=== PATIENT | female | born 1980 | race Caucasian/White ===

== ENCOUNTER 2019-03-20 00:59 | Emergency (ER) | payer OTHER ==
[~2019-03-20] VITALS: Ht 154.9 cm; Wt 83.0 kg
[2019-03-20 01:38] LABS: ABSOLUTE NEUTROPHILS 2.8 thou/uL (1.4-8.2); BASOPHILS 1.4 % (0.0-2.0); EOSINOPHILS 2.7 % (0.0-3.0); HEMATOCRIT 36.1 % (37.0-47.0); HEMOGLOBIN 12.2 gm/dL (12.0-15.0); LYMPHOCYTES 42.1 % (24.0-44.0); MCH 30.9 pg (26.0-34.0); MCHC 33.8 g/dL (28.0-37.0); MCV 91.4 fL (80.0-100.0); MONOCYTES 10.5 % (1.0-8.0); PLATELET COUNT 233 thou/uL (150-400); POLYS 43.3 % (36.0-66.0); RBC 3.95 mil/uL (4.20-5.00); RDW 12.9 % (10.5-14.5); WBC 6.4 thou/uL (4.0-11.0)
[2019-03-20 01:46] LABS: ANION GAP 10 mmol/L (7-16); BUN 16 mg/dL (7-18); CALCIUM 8.5 mg/dL (8.5-10.1); CHLORIDE 102 mmol/L (98-107); CO2 25 mmol/L (21-32); CREATININE 0.7 mg/dL (0.6-1.0); GLUCOSE 98 mg/dL (74-106); POTASSIUM 4.3 mmol/L (3.5-5.1); SODIUM 137 mmol/L (136-145)
[2019-03-20 01:55] LABS: TROPONIN-I <0.06 ng/mL (<0.06)
[2019-03-20 03:16] VITALS: BP 105/73
--- NOTE | 2019-03-20 15:01 | EKG ---
[address] [address] ELECTROCARDIOGRAM REPORT Name: JUSTICE ELAINE [id number] Admission: 03/20/19 Attend Phys: Discharge: 03/20/19 Date of : 82 Report #: [id number] THIS REPORT FOR: //name// [facility] ED Test Date: 2019-03-20 Test Time: 01:06:24 Pat Name: JUSTICE ELAINE Department: Room: Gender: F [employer]: [place] : 1980 Requested By: Milan Calvin Order Number: [id number] MD: Jayme Hernandez Measurements Intervals [place] Rate: 68 P: 16 [place]: 142 QRS: 46 QRSD: 84 T: 42 QT: 374 QTc: 398 Interpretive Statements Sinus rhythm No previous ECG available for comparison Electronically Signed On 03-20-2019 15:00:54 NEONATAL NURSE by Jayme Hernandez [email or web address] <ELECTRONICALLY SIGNED> By: Jayme Hernandez MD 03/20/19 1500 [id number] Jayme Hernandez MD /EPI
== END 2019-03-20 03:18 | disposition home or self-care (01) ==
LOC: ER 00:59
PROVIDERS: Emergency Medicine
DX: R07.89 Other chest pain (principal)

== ENCOUNTER 2019-10-15 20:49 | Emergency (ER) | payer OTHER ==
[~2019-10-15] VITALS: Ht 154.9 cm; Wt 82.6 kg
[2019-10-15 21:37] LABS: ABSOLUTE NEUTROPHILS 2.1 thou/uL (1.4-8.2); BASOPHILS 0.6 % (0.0-2.0); EOSINOPHILS 0.3 % (0.0-3.0); HEMATOCRIT 40.5 % (37.0-47.0); LYMPHOCYTES 33.6 % (24.0-44.0); MCH 31.8 pg (26.0-34.0); MCHC 34.6 g/dL (28.0-37.0); MCV 91.9 fL (80.0-100.0); PLATELET COUNT 168 thou/uL (150-400); POLYS 59.5 % (36.0-66.0); WBC 3.5 thou/uL (4.0-11.0)
[2019-10-15 21:42] LABS: URINE BILIRUBIN NEGATIVE (Negative); URINE BLOOD TRACE (Negative); URINE CLARITY CLEAR; URINE COLOR YELLOW; URINE GLUCOSE-RANDOM* NEGATIVE (Negative); URINE KETONES TRACE (Negative); URINE LEUKOCYTES-REFLEX NEGATIVE (Negative); URINE NITRITE-REFLEX NEGATIVE (Negative); URINE PROTEIN (DIPSTICK) NEGATIVE (Negative); URINE SPECIFIC GRAVITY 1.025 (1.005-1.035)
[2019-10-15 21:45] LABS: CREATININE 0.9 mg/dL (0.6-1.0); POTASSIUM 3.5 mmol/L (3.5-5.1)
[2019-10-15 21:51] LABS: ALBUMIN 3.7 g/dL (3.4-5.0); TOTAL BILIRUBIN 0.3 mg/dL (0.2-1.0)
[2019-10-15 22:09] VITALS: BP 111/70
--- NOTE | 2019-10-17 16:01 | EKG ---
[facility] [place] [address] ELECTROCARDIOGRAM REPORT Name: JUSTICE ELAINE Room #: 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
== END 2019-10-15 22:10 | disposition home or self-care (01) ==
LOC: ER 20:49
PROVIDERS: Emergency Medicine
DX: R50.9 Fever, unspecified (principal); Z20.828 Contact with and (suspected) exposure to other viral communicable diseases; R07.0 Pain in throat; R07.89 Other chest pain; R00.0 Tachycardia, unspecified

== ENCOUNTER 2019-10-19 21:05 | Inpatient (IN) | payer OTHER ==
[~2019-10-19] VITALS: Ht 154.9 cm; Wt 77.6 kg
[2019-10-19 21:14] VITALS: BP 89/63
[2019-10-19 21:44] LABS: BASOPHILS 0.3 % (0.0-2.0); EOSINOPHILS 0.5 % (0.0-3.0); HEMATOCRIT 40.1 % (37.0-47.0); LYMPHOCYTES 42.7 % (24.0-44.0); MCH 31.6 pg (26.0-34.0); MCHC 34.9 g/dL (28.0-37.0); MCV 90.4 fL (80.0-100.0); MONOCYTES 8.6 % (1.0-8.0); PLATELET COUNT 216 thou/uL (150-400); POLYS 47.9 % (36.0-66.0); RBC 4.43 mil/uL (4.20-5.00); WBC 4.2 thou/uL (4.0-11.0)
[2019-10-19 21:53] LABS: ANION GAP 8 mmol/L (7-16); BUN 5 mg/dL (7-18); CALCIUM 8.3 mg/dL (8.5-10.1); CHLORIDE 103 mmol/L (98-107); CO2 29 mmol/L (21-32); CREATININE 0.7 mg/dL (0.6-1.0); GLUCOSE 95 mg/dL (74-106); POTASSIUM 3.6 mmol/L (3.5-5.1); SODIUM 140 mmol/L (136-145)
[2019-10-19 22:03] LABS: ALBUMIN 3.3 g/dL (3.4-5.0); SGOT 29 U/L (15-37); SGPT 22 U/L (30-65); TOTAL BILIRUBIN 0.3 mg/dL (0.2-1.0); TROPONIN-I <0.06 ng/mL (<0.06)
[2019-10-20 02:10] VITALS: BP 90/63
[2019-10-20 02:56] VITALS: BP 85/60
[2019-10-20 04:14] VITALS: BP 94/67
[2019-10-20] MEDS ORDERED: TYLENOL EXTRA500 MG PO (04:54)
--- NOTE | 2019-10-20 07:45 | NUR ---
Arrived from ER around 0410. Tolerating room air well. She does get short of breath with exertion. Afebrile. Left a message for Jack Deal consult. Ambulated to bathroom with steady gait.
[2019-10-20 08:33] VITALS: BP 90/61
--- NOTE | 2019-10-20 08:49 | EKG ---
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: [place] : 1980 Requested By: Bernardo Chand Order Number: [id number] MD: Soy Montoya Measurements Intervals [place] Rate: 87 P: 2 [place]: 153 QRS: 14 QRSD: 82 T: 5 QT: 345 QTc: 415 Interpretive Statements Sinus rhythm Borderline T wave abnormalities Compared to ECG 10/15/2019 21:27:52 T-wave abnormality now present Electronically Signed On 10-20-2019 8:49:27 CDT by Soy Montoya [email or web address] <ELECTRONICALLY SIGNED> By: Soy Montoya MD, [facility] 10/20/19 0849 2147 Soy Montoya MD, [facility] /EPI
[2019-10-20 09:29] LABS: CREATININE 0.6 mg/dL (0.6-1.0); MAGNESIUM 2.1 mg/dL (1.8-2.4); POTASSIUM 3.3 mmol/L (3.5-5.1)
[2019-10-20 12:42] LABS: HEMATOCRIT 37.9 % (37.0-47.0); MCH 31.5 pg (26.0-34.0); MCHC 34.3 g/dL (28.0-37.0); MCV 91.9 fL (80.0-100.0); RBC 4.12 mil/uL (4.20-5.00); RDW 13.1 % (10.5-14.5); WBC 4.2 thou/uL (4.0-11.0)
--- NOTE | 2019-10-20 13:34 | NUR ---
ASSUMED PATIENT CARE THIS SHIFT AT APPROXIMATELY 0700. PATIENT AWAKE ALERT ORIENTED, NO DISTRESS NOTED UPON ASSESSMENT, O2 SAT STABLE ON ROOM AIR. MEDS CHARTED. PATIENT AFEBRILE. MADE DR. CADET AWARE OF PATIENT HYPOTENSION SBP IN 90S AND PATIENT REPORT OF HAVING BLOOD IN STOOL AT HOME. STATES TO MONITOR FOR BLOOD IN STOOL AND TO CTM, CONTINUE FLUIDS AND IV ABO FOR NOW. PT WAITING TO SEE DR. MCDANIEL. MED ASSIST PROGRAM CALLED UNIT TO SPEAK WITH PATIENT, TO ASSIST PATIENT WITH RECIEVING INSURANCE AND ASSISTANCE WITH MEDS.
--- NOTE | 2019-10-20 14:49 | NUR ---
INITIAL ASSESSMENT: BINA reviewed chart and spoke with nursing and attending physician. Pt was admitted from home. Pt is COVID positive and in Enhanced Isolation. Pt is on IV steroids. Not requiring O2. Possible weekend discharge per attending physician. Pt does not have health insurance. BINA placed call to pt's room. No answer. BINA left message on listed contact number for pt. BINA faxed Health Resource Guide to the unit to provide to pt. Should pt need financial assistance with medications at time of discharge, scripts can be sent to [employer] Staff to print form from the Case Management Dept on [employer]. Complete form and fax to [employer] Send original scripts with pt to superintendent division meds. BINA is available to assist as needed with discharge planning.
[2019-10-20 16:30] VITALS: BP 102/71
[2019-10-20 22:00] VITALS: BP 94/70
[2019-10-21 04:14] VITALS: BP 100/71
[2019-10-21 04:57] LABS: PROTIME 10.2 Seconds (9.3-11.4)
[2019-10-21 05:02] LABS: FIBRINOGEN 444.4 mg/dL (210-360)
[2019-10-21 05:35] LABS: ABSOLUTE NEUTROPHILS 1.8 thou/uL (1.4-8.2); BASOPHILS 0.2 % (0.0-2.0); HEMATOCRIT 38.3 % (37.0-47.0); HEMOGLOBIN 13.2 gm/dL (12.0-15.0); LYMPHOCYTES 31.1 % (24.0-44.0); MCH 31.4 pg (26.0-34.0); MCHC 34.4 g/dL (28.0-37.0); MCV 91.3 fL (80.0-100.0); PLATELET COUNT 260 thou/uL (150-400); POLYS 58.7 % (36.0-66.0); RDW 12.8 % (10.5-14.5); WBC 3.1 thou/uL (4.0-11.0)
[2019-10-21 06:00] LABS: ALBUMIN 2.9 g/dL (3.4-5.0); CALCIUM 8.3 mg/dL (8.5-10.1); CREATININE 0.6 mg/dL (0.6-1.0); POTASSIUM 3.9 mmol/L (3.5-5.1); TOTAL BILIRUBIN 0.4 mg/dL (0.2-1.0); TOTAL PROTEIN 7.4 g/dL (6.4-8.2)
[2019-10-21 08:15] VITALS: BP 104/75
[2019-10-21 15:27] VITALS: BP 104/76
--- NOTE | 2019-10-21 19:03 | NUR ---
ASSUMED CARE APPROX 0700. PT ALERT AND ORIENTED X4. ASSESSMENT CHARTED AND VSS. PT DENIES ACUTE PAIN. PT DENIES SHORTNESS OF BREATH. ON ROOM AIR W/ NO SIGNS OF DISTRESS NOTED. ORDER RECEIVED FOR CONSENT FOR CONVALESCENT PLASMA. PT HAS DECLINED AT THIS TIME. DETAILED MSG LEFT FOR DR. MCDANIEL INFORMING HIM OF THIS. REPORTED TO NOC NURSE, ELLIS KEENE, WELL. PT COVID RESULTS POSITIVE. DR. CADET NOTIFIED. NO NEW ORDERS GIVEN. PT PROGRESSING TOWARDS PLAN OF CARE GOALS. WILL CONTINUE TO MONITOR.
[2019-10-21 19:21] VITALS: BP 96/69
--- NOTE | 2019-10-21 21:48 | NUR ---
PT ALERT AND ORIENTED X4. NEPALI SPEAKING BUT UNDERSTANDS SOME ALBANIAN AND RESPONDS APPROPRIATELY. VSS AFEBRILE UNLABORED ON RA. NO S/S DISTRESS. BED DOWN CALL LIGHT IN REACH. WALKS TO BR WITH GOOD STEADY GAIT.
[2019-10-22 03:25] VITALS: BP 99/65
[2019-10-22 09:11] VITALS: BP 100/69
[2019-10-22 15:39] VITALS: BP 102/72
--- NOTE | 2019-10-22 16:25 | NUR ---
ASSUMED CARE APPROX 0700. PT ALERT AND ORIENTED X4. LIBYAN SPEAKING. ASSESSMENT CHARTED AND VSS. PT AFEBRILE THIS SHIFT. FIRST DOSE OF REMDESIVIR INFUSED W/O ANY ADVERSE EFFECTS. PT DENIES ACUTE PAIN. PT ON ROOM AIR W/ NO SIGNS OF DISTRESS NOTED. AFTER PT SPOKE W/ DR. CADET THIS MORNING THERE WAS A BETTER UNDERSTANDING OF CONVALESCENT PLASMA TX. PT WOULD LIKE TO MOVE FORWARD WITH THAT. CONSENTS SIGNED AND SENT TO LAB.
[2019-10-22 16:57] VITALS: BP 105/75
[2019-10-22 18:44] VITALS: BP 103/67; BP 109/79
[2019-10-22 20:04] VITALS: BP 101/69
--- NOTE | 2019-10-22 23:52 | NUR ---
PT ALERT AND ORIENTED. UNDERSTANDS SOME MACEDONIAN/ VSS AFEBRILE. TOLERATED CONVOLESCENT PLASMA WELL. DENIED PAIN SHE STATED SHE FEELS BETTER TODAY. WILL CONTINUE TO MONITOR PT FOR CHANGES.
[2019-10-23 04:05] VITALS: BP 97/42
[2019-10-23 06:02] LABS: CALCIUM 8.7 mg/dL (8.5-10.1); CREATININE 0.7 mg/dL (0.6-1.0); MAGNESIUM 2.1 mg/dL (1.8-2.4); POTASSIUM 3.6 mmol/L (3.5-5.1)
[2019-10-23 06:03] LABS: HEMATOCRIT 38.9 % (37.0-47.0); HEMOGLOBIN 13.2 gm/dL (12.0-15.0); MCH 31.1 pg (26.0-34.0); MCV 91.6 fL (80.0-100.0); RBC 4.25 mil/uL (4.20-5.00); RDW 12.8 % (10.5-14.5); WBC 7.2 thou/uL (4.0-11.0)
--- NOTE | 2019-10-23 06:23 | NUR ---
PT RESTING QUIETLY. NOTIFIED DAXA KIM NP REGARDING HR IN THE 40S.PT ASYMPTOMATIC. NO TELE ORDERED UNLESS PT BECOME SYMPTOMATIC.
[2019-10-23 08:25] VITALS: BP 101/71
[2019-10-23 16:13] VITALS: BP 103/73
--- NOTE | 2019-10-23 18:37 | NUR ---
ASSUMED PATIENT CARE THIS AM AT APPROXIMATELY 0700. PATIENT TOLERATING INTERVENTIONS WELL. VSS. ASSESSMENT AND MEDS CHARTED. NO DISTRESS NOTED. RECIEVING REMDESIVIR THERAPY AND TOLERATING WELL. STATES THAT SHE IS FEELING MUCH BETTER. TOLERATING ALL MEALS. NO CONCERNS/ COMPLAINTS AT THIS TIME.
[2019-10-23 19:53] VITALS: BP 90/59
--- NOTE | 2019-10-23 23:47 | NUR ---
PT ALERT AND ORIENTED X4. SPEAKS SLOVENIAN .UNDERSTANDS SOME EQUATORIAL GUINEAN. VSS AFEBRILE. NO C/O PAIN. NO S/S DISTRESS. RESPIRATIONS UNLABORED.
[2019-10-24 04:49] VITALS: BP 95/58
--- NOTE | 2019-10-24 06:26 | NUR ---
PT PROGRESSING TOWARDS D/C GOALS. RESPIRATIONS UNLABORED. NO C/O SOA. NO C/O PAIN. NO S/S DISTRESS.
[2019-10-24 08:46] VITALS: BP 105/73
--- NOTE | 2019-10-24 15:29 | NUR ---
ASSUMED PATIENT CARE THIS AM AT APPROXIMATELY 0700. PATIENT AWAKE ALERT, IN NO DISTRESS THIS SHIFT. VSS. O2 SAT STABLE, NO FEVERS. PATIENT STATES SHE IS FEELING GOOD, READY TO GO HOME. EDUCATED PATIENT ON FINISHING COURSE OF ANTIVIRAL MEDICATION. NO CONCERNS/COMPLAINTS. ASSESSMENT AND MEDS CHARTED
--- NOTE | 2019-10-24 15:46 | NUR ---
SW reviewed chart and spoke with nursing and attending physician. Pt is in Enhanced Isolation due to COVID-19. Pt is afebrile and not requiring O2. Pt is on IV abx/IV steroids and is completing course of Remdesivir. Plan is for pt to discharge home when medically stable. Med Assist is applying for ID-Medicaid on pt's behalf. BINA is following to assist as needed with discharge planning.
[2019-10-24 15:48] VITALS: BP 98/63
[2019-10-24 19:39] VITALS: BP 95/62
[2019-10-25 04:46] VITALS: BP 101/93
--- NOTE | 2019-10-25 07:21 | NUR ---
ASSUME CARE 1900. PT/VITALS STABLE. DENIES ANY PAIN. EXCELLENT TOLERANCE TO ACTIVITY. NO SOB NOTED AT REST OR EXERTION. ASSESSMENT CHARTED. PROGRESSING WELL WITH PIOCV. NO DISTRESS NOTED THROUGH THE NIGHT. PLAN IS POSSIBLE DISCHARGE TOMORROW POST LAST DOSE OF REMDESIVIER. WILL CONTINUE TO MONITOR AND FOLLOW WITH POC
[2019-10-25 10:00] VITALS: BP 91/52
--- NOTE | 2019-10-25 14:18 | NUR ---
BINA reviewed chart and spoke with nursing and attending physician. Pt is in Enhanced Isolation due to COVID-19. Pt is afebrile and not requiring O2. Pt is on IV steroids. Pt is completing course of Remdesivir tomorrow. Anticipate pt will be ready for discharge tomorrow. BINA placed call to pt's room. No answer. Med Assist has applied for Medicaid on pt's behalf due to dx of COVID-19. Case Mgmt Dept to assist pt with medications if needed. BINA is following to assist as needed with discharge planning.
[2019-10-25 17:09] VITALS: BP 88/52
[2019-10-25 20:36] VITALS: BP 105/75
[2019-10-26 04:46] VITALS: BP 105/72
[2019-10-26 06:11] LABS: HEMATOCRIT 42.5 % (37.0-47.0); HEMOGLOBIN 14.3 gm/dL (12.0-15.0); MCH 30.9 pg (26.0-34.0); MCHC 33.7 g/dL (28.0-37.0); MCV 91.7 fL (80.0-100.0); RBC 4.63 mil/uL (4.20-5.00); RDW 12.8 % (10.5-14.5); WBC 12.7 thou/uL (4.0-11.0)
[2019-10-26 06:38] LABS: CALCIUM 8.1 mg/dL (8.5-10.1); CREATININE 0.6 mg/dL (0.6-1.0); POTASSIUM 4.2 mmol/L (3.5-5.1)
--- NOTE | 2019-10-26 07:11 | NUR ---
afebrile, pt is expecting to go home today. she is cooperative and calm. [employer] instructional services specialist used for surinamese- lao language barrier. denies pain. up to the restroom ind.
[2019-10-26 07:44] VITALS: BP 90/61
[2019-10-26] MEDS ORDERED: PREDNISONE 10 M10 M1 PO (11:37)
[2019-10-26 12:25] VITALS: BP 90/61
--- NOTE | 2019-10-26 15:13 | NUR ---
ASSUMED PATIENT CARE THIS SHIFT. AWAKE ALERT, NO DISTRESS. O2 SAT STABLE ON ROOM AIR. PATIENT STATES SHE IS FEELING GREAT AND READY TO GO HOME TODAY. DISCHARGE ORDERS IN AFTER LAST DOSE OF REMDESIVIR. MEDICATION OBTAINED FROM OUTPATIENT PHARMACY AND GIVEN TO PATIENT PRIOR TO DC. PATIENT IV SALINE LOCK REMOVED. TOLERATED WELL. ALL PATIENT BELONGINGS TAKEN WITH PATIENT AT DISCHARGE. INFORMATION ON OUTPATIENT FOLLOW UP CLINICS GIVEN TO PATIENT
--- NOTE | 2019-10-26 16:11 | NUR ---
DISCHARGE NOTE: SW reviewed chart and spoke with nursing and attending physician. Pt completed course of Remdesivir last evning and is medically stable for discharge home today. Script sent to [facility] pharmacy. Total was $9.87. BINA faxed Health Resource Guide in Czech to pt's nurse to provide to pt for follow up care. Pt is Medicaid pending. Pt's family to provide transportation home. No additional SW needs identified at this time, but is available to assist should needs arise.
== END 2019-10-26 15:35 | disposition home or self-care (01) | DRG 177 ==
LOC: ER 21:05 → 3W 23:48 → EROBS 23:48 → 3W 10-20 03:49
PROVIDERS: Emergency Medicine; Hospitalist; Specialist; ADMIT Internal Medicine; ATTEND Internal Medicine
PROC: XW13325 Transfusion of Convalescent Plasma (Nonautologous) into Peripheral Vein, Percutaneous Approach, New Technology Group 5 (ICD-10-PCS; principal; 2019-10-22)
PROC: XW033E5 Introduction of Remdesivir Anti-infective into Peripheral Vein, Percutaneous Approach, New Technology Group 5 (ICD-10-PCS; principal; 2019-10-22)
PROC: XW033E5 Introduction of Remdesivir Anti-infective into Peripheral Vein, Percutaneous Approach, New Technology Group 5 (ICD-10-PCS; 2019-10-23)
DX: U07.1 COVID-19 (principal); J12.89 Other viral pneumonia; J96.01 Acute respiratory failure with hypoxia; I95.9 Hypotension, unspecified; I10 Essential (primary) hypertension; E87.6 Hypokalemia; Z79.899 Other long term (current) drug therapy
CPT/HCPCS: 10080; 10879